=== PATIENT | male | born 1950 | race Caucasian/White ===

== ENCOUNTER 2022-11-20 13:35 | Emergency (ER) | payer MEDICARE ==
[~2022-11-20] VITALS: Ht 187.9 cm; Wt 122.5 kg
[~2022-11-20 13:35] MED LIST: PREDNISONE20 M1 PO
[2022-11-20 14:27] LABS: BASO # 0.1 10*3/uL (0.0-0.1); BASO % 0.7 % (0.0-1.0); EOS # 0.2 10*3/uL (0.0-0.4); EOS % 3.3 % (1.0-4.0); HEMATOCRIT 50.5 % (42.0-52.0); LYMPH # 1.9 10*3/uL (1.3-4.4); LYMPH % 25.8 % (27.0-41.0); MEAN CELL VOLUME 98.2 fl (80.0-94.0); MEAN CORPUSCULAR HGB 33.1 pg (27.0-31.0); MEAN CORPUSCULAR HGB CONC 33.7 g/dl (33.0-37.0); MONO # 0.7 10*3/uL (0.1-1.0); MONO % 9.3 % (3.0-9.0); NEUT # 4.4 10*3/uL (2.3-7.9); NEUT % 60.8 % (47.0-73.0); PLATELET COUNT AUTOMATED 261 10*3/uL (130-400); RED BLOOD COUNT 5.14 10*6/uL (4.50-5.90); RED CELL DISTRI WIDTH 12.7 % (0-14.5); WHITE BLOOD COUNT 7.2 10*3/uL (4.8-10.8)
[2022-11-20 14:38] LABS: ACT PARTIAL THROMBO TIME 29.9 SECONDS (20.0-32.1)
[2022-11-20 14:45] LABS: ALKALINE PHOSPHATASE 62 U/L (46-116); BUN 14 mg/dl (9-23); CHLORIDE 101 mmol/L (98-107); POTASSIUM 4.4 mmol/L (3.4-5.1); SGPT/ALT 45 U/L (10-49); TOTAL PROTEIN 7.6 gm/dL (6.0-8.0)
[2022-11-20] MEDS ORDERED: HYDROCODONE-AC1 EAC1 PO (21:30)
[2022-11-26] MEDS ORDERED: LOSARTAN POTASS25 M1 PO (13:18)
[2022-11-26] MEDS ORDERED: CARVEDILOL3.125 MG PO (13:18)
[2022-11-26] MEDS ORDERED: LIPITOR20 MG PO (13:18)
[2022-11-26] MEDS ORDERED: METFORMIN HYD1000 MG PO (13:19)
[2022-11-26] MEDS ORDERED: ALLOPURINOL300 MG PO (13:19)
[2022-11-26] MEDS ORDERED: GLIPIZIDE10 M1 PO (13:19)
== END 2022-11-20 22:09 | disposition home or self-care (01) ==
LOC: ED 13:35
PROVIDERS: Emergency Medicine
DX: S82.842A Displaced bimalleolar fracture of left lower leg, initial encounter for closed fracture (principal); X50.1XXA Overexertion from prolonged static or awkward postures, initial encounter; Y93.89 Activity, other specified; Y92.89 Other specified places as the place of occurrence of the external cause; Y99.8 Other external cause status